=== PATIENT | male | born 1960 | race African-American/Black ===

== ENCOUNTER 2017-05-25 09:00 | Emergency (ER) | payer SELFPAY ==
[~2017-05-25] VITALS: Ht 170.2 cm; Wt 94.7 kg
[2017-05-25] MEDS ORDERED: TYLENOL WITH C1 EACH PO (10:51)
[2017-05-25] MEDS ORDERED: FLEXERIL10 MG PO (10:51)
[2017-05-25 11:04] VITALS: BP 162/96
== END 2017-05-25 11:06 | disposition home or self-care (01) ==
LOC: EME 09:00
DX: M54.5 Low back pain (principal); R11.0 Nausea
CPT/HCPCS: 72100; 99281; 99284; J1885